=== PATIENT | female | born 1985 | race Caucasian/White ===

== ENCOUNTER 2017-10-30 22:38 | Emergency (ER) | payer MEDICAID, SELFPAY ==
[2017-10-30 22:39] VITALS: BP 133/81; PULSE 101; RESP 16; TEMP 37; O2SAT 97; BMI 24.8
[2017-10-30 22:44] VITALS: BP 133/81; PULSE 102; RESP 16; O2SAT 99
[2017-10-30] MEDS: Ondansetron ODT 4 MG Tablet PO (23:16)
[2017-10-30] MEDS: Smz/Tmp Ds Tablet 1 TABLET PO (23:17)
[2017-10-30] MEDS: HYDROmorphone 1 MG/ML Syringe SC (23:17)
--- NOTE | 2017-10-30 23:19 | ED.VISSUMM ---
- ER Visit Summary Date of Service: 10/30/17 Chief Complaint: [Lump in left axilla] History of Present Illness: The patient is a 32 F [who presents the emergency department with a lump in the left axilla for the last 3 days. It is painful. She has had some chills. She had multiple abscesses especially in the axilla in the past. No fevers. She is otherwise healthy. She denies the possibility of . Tetanus is up-to-date.] Physical Examination: [] Blood pressure 133/81 heart rate 102 99% on room air temperature normal WN WD NAD PERRL EOMI MMM NECK supple and nontender, no masses RRR no murmur rub or gallop, no peripheral edema, symmetric radial pulses CTAB no respiratory distress ABDOMEN is soft and nontender, normal bowel sounds, no distension, no rebound or guarding SKIN 3 cm x 2 cm firm mass in the left axilla with surrounding mild amount of cellulitis no lymphangitic streaking Alert and Oriented x3, CN II-XII in tact, no motor or sensory deficits, gait normal No lymphadenopathy Test Results: [] Emergency Department Course and Treatment: [Patient was given subcu Dilaudid Bactrim and Zofran. She was consented for incision and drainage. Incision drainage was performed with packing. Wound care instructions were given. Patient was given Bactrim and 7 [place]. She is given instructions for which to return and primary follow-up instructions.] Procedure note Incision and drainage left axilla abscess Prepped with chlorhexidine and saline scrub Patient given 1 cc of lidocaine locally Incision made with 11 blade with copious purulent return Cultures taken loculations broken Wound was packed Tolerated well Treatment Plan: [] Disposition: [Discharge] Impression: [Left axilla abscess status post incision and drainage initial encounter] This note was generated with [employer] dictation software. It may contain incorrect words, spelling, and punctuation that were not noted in review of the chart prior to signing ED Disposition - Plan for ED Patient: Chief Complaint: Abscess Instructions: ED Abscess IandD Prescriptions: Hydrocodone Bitart/Apap 5-325 [[place] 5MG-325MG] 1 tablet PO Q6H PRN PRN 2 Days #7 tablet PRN Reason: Pain Sulfamethoxazole/Trimethoprim [Bactrim Ds Tablet] 1 each PO BID #20 tablet Referrals: Sin Chen MD [STAFF PHYSICIAN] - 3-5 Days
--- NOTE | 2017-10-30 23:21 | ED.DEP ---
ED Disposition - Plan for ED Patient: Chief Complaint: Abscess Instructions: ED Abscess IandD Prescriptions: Hydrocodone Bitart/Apap 5-325 [[place] 5MG-325MG] 1 tablet PO Q6H PRN PRN 2 Days #7 tablet PRN Reason: Pain Sulfamethoxazole/Trimethoprim [Bactrim Ds Tablet] 1 each PO BID #20 tablet Referrals: Sin Chen MD [STAFF PHYSICIAN] - 3-5 Days
--- NOTE | 2017-10-30 23:23 | DCINST.ED_ITS ---
ED Disposition - Plan for ED Patient: Chief Complaint: Abscess Instructions: ED Abscess IandD Prescriptions: Hydrocodone Bitart/Apap 5-325 [[place] 5MG-325MG] 1 tablet PO Q6H PRN PRN 2 Days # 7 tablet PRN Reason: Pain Sulfamethoxazole/Trimethoprim [Bactrim Ds Tablet] 1 each PO BID #20 tablet Referrals: Sin Chen MD [STAFF PHYSICIAN] - 3-5 Days
[2017-10-31 00:27] VITALS: BP 127/89; PULSE 67; RESP 16; O2SAT 96
== END 2017-10-31 00:27 | disposition home or self-care (01) ==
PROVIDERS: Emergency Provider Emergency Medicine
DX: L02.412 Cutaneous abscess of left axilla (principal); L03.112 Cellulitis of left axilla; E28.2 Polycystic ovarian syndrome; Z87.2 Personal history of diseases of the skin and subcutaneous tissue
CPT/HCPCS: 10060; 87070; 87077; 87186; 87205; 96372; 99282

== ENCOUNTER 2018-03-02 21:08 | Emergency (ER) | payer MEDICAID, SELFPAY ==
[2018-03-02 21:09] VITALS: BP 137/63; PULSE 86; RESP 12; TEMP 37.2; O2SAT 96; BMI 23.3
[2018-03-02] MEDS: oxyCODONE 5 MG Tablet PO (22:05)
--- NOTE | 2018-03-02 22:38 | ED.DCSUM_ITS ---
- ER Visit Summary Date of Service: 03/02/18 Chief Complaint: Bilateral axillary abscesses History of Present Illness: The patient is a 33 F who presents with bilateral axillary abscesses. She has a history of recurrent abscesses. She initially noticed these about 1 week ago. She does report a fever at home of 102. She reports nausea. No vomiting or diarrhea. She denies any medical history. She takes no daily medications. She does not have a primary care physician. Physical Examination: Afebrile vitals are normal Moist mucous membranes Heart regular rate and rhythm Lungs are clear Abdomen soft Patient has bilateral axillary abscesses this measures approximately 3 x 3 cm on the right and 2 x 2 cm on the left the right axillary abscess does have surrounding cellulitis Test Results: Not indicated Emergency Department Course and Treatment: Patient was given oxycodone for pain. She underwent bilateral incision and drainage. 2 cc of local 1% lidocaine was instilled in the left axillary abscess which was well tolerated. She was incised with a #11 blade and had a small amount of purulent drainage. She does have significantly more pain on the right. She was able to tolerate local anesthesia. 2 cc of local 1% lidocaine were infiltrated around a spontaneously draining wound. This wound was extended with a cruciate incision which was well-tolerated. A significant amount of purulent drainage was expressed. However with pressure to express the purulent drainage the patient had significant pain and asked that the procedure be terminated. Given that she is already spontaneously draining I do not believe sedation warranted just to apply pressure to express the drainage. She will be referred to general surgery for recheck. She will be sent home on oral Keflex and Bactrim. She understands return for new or worsening symptoms was instructed on specific signs and symptoms to monitor for. Treatment Plan: [] Disposition: Discharge Impression: Bilateral axillary abscesses with incision and drainage This note was generated with [employer] dictation software. It may contain incorrect words, spelling, and punctuation that were not noted in review of the chart prior to signing ED Disposition - Plan for ED Patient: Chief Complaint: Abscess Referrals: Care Physician,No Primary [Primary Care Provider] -
--- NOTE | 2018-03-02 22:38 | ED.DEP ---
ED Disposition - Plan for ED Patient: Chief Complaint: Abscess Instructions: ED Abscess IandD, ED Infec Skin Cellulitis Prescriptions: Hydrocodone Bitart/Apap 5-325 [[place] 5MG-325MG] 1 tab PO Q6H PRN PRN 3 Days #10 tab PRN Reason: Pain Cephalexin [Keflex] 500 mg PO Q6 #40 cap Smz/Tmp Ds [Bactrim Ds] 1 tab PO BID #14 tab Referrals: Care Physician,No Primary [Primary Care Provider] - Connor Becerril MD [STAFF PHYSICIAN] -
[2018-03-02] MEDS: Cephalexin 250 MG Capsule 500 MG PO (22:59)
[2018-03-02] MEDS: HYDROcodone Bitartrate/Apap 5/325 Tablet PO (22:59)
[2018-03-02] MEDS: Smz/Tmp Ds Tablet 1 TABLET PO (22:59)
[2018-03-02 23:05] VITALS: BP 155/75; PULSE 84; RESP 18; O2SAT 95
== END 2018-03-02 23:06 | disposition home or self-care (01) ==
LOC: ED 21:53
PROVIDERS: Emergency Provider Emergency Medicine
DX: L02.412 Cutaneous abscess of left axilla (principal); L02.411 Cutaneous abscess of right axilla; Z72.0 Tobacco use
CPT/HCPCS: 10060; 99283